=== PATIENT | male | born 1965 | race African-American/Black ===

== ENCOUNTER 2017-02-23 13:58 | Emergency (ER) | payer SELFPAY ==
[~2017-02-23] VITALS: Ht 172.7 cm; Wt 85.0 kg
[~2017-02-23 13:58] MED LIST: NAPR550 PO; PENI500T PO; PENVK500 PO
[2017-02-23 13:59] VITALS: BP 149/91; PULSE 84; RESP 15; TEMP 98.5; O2SAT 98
--- NOTE | 2017-02-23 14:04 | PD ---
HPI . right lower tooth pain Chief Complaint: Oral / Dental Pain or Problem Time Seen by Provider: 14:04 Travel History International Travel<30 days: No Contact w/Intl Traveler<30days: No Traveled to known affect area: No History of Present Illness HPI 51-year-old male here with complaints of right lower tooth pain and and facial swelling for the past several days. Patient says that he knows that he needs to follow with the dentist and has been trying to do so through the [facility]. He says that he would just like a prescription for some penicillin and does not want anything for pain. He has no other complaints. He denies fever, chills or any other issues. He denies drainage from his mouth or facial swelling. PFSH Past Medical History Hx Anticoagulant Therapy: No Cardiovascular Problems: No Chemotherapy: No Cerebrovascular Accident: No Diabetes: No Respiratory: No Past Surgical History Hysterectomy: No Social History Alcohol Use: Yes Tobacco Use: Yes Allergies-Medications (Allergen,Severity, Reaction): Coded Allergies: No Known Allergies (Unverified , 02/23/17) Reported Meds & Prescriptions Reported Meds & Active Scripts Active Penicillin V Potassium 500 Mg Tab 500 Mg PO Q6H 10 Days Review of Systems General / Constitutional: No: Fever Eyes: No: Visual changes HENT: Positive: Dental Difficulties, No: Headaches Cardiovascular: No: Chest Pain or Discomfort Respiratory: No: Shortness of Breath Gastrointestinal: No: Abdominal Pain Genitourinary: No: Dysuria Musculoskeletal: No: Pain Skin: No Rash Neurologic: No: Weakness Psychiatric: No: Depression Endocrine: No: Polydipsia Hematologic/Lymphatic: No: Easy Bruising Physical Exam Narrative GENERAL: AAO x 3, no acute distress, Well-nourished, well-developed patient. SKIN: Warm and dry. No visible rashes or bruising. HEAD: Normocephalic and atraumatic. EYES: No scleral icterus. No injection or drainage. EOM intact, PERRLA ENT: No nasal drainage noted. Mucous membranes pink. Airway patent. poor dentition with remaining teeth, dental caries present, no fluid collection, no abscess formation NECK: Supple, trachea midline. No JVD. No lymphadenopathy CARDIOVASCULAR: Regular rate and rhythm without murmurs, gallops, or rubs. RESPIRATORY: Breath sounds equal bilaterally. No accessory muscle use. No rhonchi or rales. GASTROINTESTINAL: Abdomen soft, non-tender, nondistended. EXTREMITIES: No cyanosis or edema. BACK: No obvious deformity. NEURO: CN II-12 intact, PSYCH: AAO x 3, normal affect. Data Data Last Documented VS Vital Signs Date Time Temp Pulse Resp B/P Pulse Ox O2 Delivery O2 Flow Rate FiO2 02/23/17 13:59 98.5 84 15 149/91 98 MDM Medical Decision Making Medical Screen Exam Complete: Yes Emergency Medical Condition: Yes Medical Record Reviewed: Yes Differential Diagnosis dental caries, less likely oral abscess, dentalgia Narrative Course 51-year-old male here with complaints of dental pain. On examination there are no gross abnormalities the patient does have some dental caries. I recommend Penicillin VK. I've encouraged patient to follow-up with the dentist. Patient verbalized understanding of instructions, questions were answered, and thanked me for their care. I advised them if their condition worsens, please return to the nearest emergency room for further care. Diagnosis Primary Impression: Dental caries Referrals: Dentist Patient Instructions: General Instructions Additional Instructions: Please return to emergency department if your symptoms return or worsen. Follow up with your primary care provider. Take medications as prescribed. As we discussed, you will need to see a dentist. Med/Other Pt SpecificInfo: Prescription(s) given Scripts Penicillin V Potassium 500 Mg [id number] Mg PO Q6H 10 Days Ref 0 Prov:Iona Price MD 02/23/17 Disposition: 01 DISCHARGE HOME Condition: Stable Charlette Acevedo Feb 23, 2017 14:04
[2017-02-23] MEDS ORDERED: PENI500T PO (14:08)
== END 2017-02-23 14:22 | disposition home or self-care (01) ==
LOC: NEPD 13:58
DX: K02.9 Dental caries, unspecified (principal); Z72.0 Tobacco use
CPT/HCPCS: 99283